=== PATIENT | male | born 1965 | race Hispanic/Latino ===

== ENCOUNTER 2024-07-25 16:22 | Emergency (ER) | payer OTHER, SELFPAY ==
[2024-07-25] MEDS ORDERED: Lidocaine 1% PF 5 ML VIAL ONE (16:59)
[2024-07-25] MEDS ORDERED: Boostrix 0.5 ML (Tdap) VIAL (>/=7 yrs of age) ONE (16:59)
== END 2024-07-25 18:26 | disposition home or self-care (01) ==
LOC: ERS 16:22
DX: S91.312A Laceration without foreign body, left foot, initial encounter (principal); Z23 Encounter for immunization; W20.8XXA Other cause of strike by thrown, projected or falling object, initial encounter
CPT/HCPCS: 12001; 90471; 90715